=== PATIENT | male | born 1970 | race Caucasian/White ===

== ENCOUNTER 2023-09-15 20:20 | Emergency (ER) | payer OTHER ==
--- NOTE | 2023-09-15 20:27 | ERPHSYRPT ---
- History of Present Illness Time Seen by Provider: 09/15/23 20:26 Source: patient, family Exam Limitations: no limitations Physician History: pt complaint of neck pain Denies Hx trauma. no CP or sobreath but with 6 month Hx neck pain severe though today and got lost / went to wrong room distracted by pain but was concerned. Numbness subjective right arm but normal on exam now. CHest clear. Ht regular without M. Abd soft nontendder no peritoneal signs. Neuro and PERRl EOm fundi benign all normal on exam. No meningismus or reported fever. Discussed risks/benefits with pt and family of labs C]BC, CMP, CXR, Dilaudid, Orphenidrine, benadryl, IV IVF, CT and CTA brain and c spine and neck with pt EKG Trops D DImer and all wish to p[roceed, these are ordered. and results discussed. No rash. No Hx blood thinner. Timing/Duration: today, week(s) Method of Injury: unknown Quality: burning, radiating, sharp, stabbing, throbbing Back Pain Location: C-spine Severity of Pain-Max: severe Severity of Pain-Current: severe Modifying Factors: Improves With: immobilization, movement Associated Symptoms: other ( distracted or confused maybe from pain) Previous symptoms: different symptoms, no recent treatment Allergies/Adverse Reactions: No Known Drug Allergies Allergy (Verified 09/15/23 20:27) Home Medications: No Reportable Medications [No Reported Medications] 09/15/23 [History] - Review of Systems Constitutional: No Fever, No Chills Eyes: No Symptoms Ears, Nose, & Throat: No Symptoms Respiratory: No Cough, No Dyspnea Cardiac: No Chest Pain, No Edema, No Syncope Abdominal/Gastrointestinal: No Abdominal Pain, No Nausea, No Vomiting, No Diarrhea Genitourinary Symptoms: No Dysuria Musculoskeletal: Neck Pain, No Back Pain, No Fall, No Injury Skin: No Rash Neurological: Other (possible confusion), No Dizziness, No Focal Weakness, No Sensory Changes Psychological: No Symptoms Endocrine: No Symptoms Hematologic/Lymphatic: No Symptoms Immunological/Allergic: No Symptoms All Other Systems: Reviewed and Negative - Past Medical History Pertinent Past Medical History: No - Nursing Vital Signs Nursing Vital Signs: Initial Vital Signs Pulse Rate 100 H 09/15/23 20:26 Respiratory Rate 18 09/15/23 20:26 Blood Pressure 163/91 09/15/23 20:26 O2 Sat by Pulse Oximetry 96 09/15/23 20:26 Pain Scale Pain Intensity 6 - Physical Exam General Appearance: moderate distress (pain), alert Eye Exam: PERRL/EOMI, eyes nml inspection Ears, Nose, Throat Exam: normal ENT inspection, TMs normal, pharynx normal, moist mucous membranes Neck Exam: normal inspection, non-tender, supple, full range of motion, No meningismus, No midline tenderness Respiratory Exam: normal breath sounds, lungs clear, No respiratory distress Cardiovascular Exam: regular rate/rhythm, normal heart sounds Gastrointestinal Exam: soft, No tenderness, No mass Rectal Exam: deferred Back Exam: normal inspection, decreased range of motion, muscle spasm (right neck) Extremity Exam: normal inspection, normal range of motion, No calf tenderness, No pedal edema Peripheral Pulses: carotid (R): 2+, carotid (L): 2+, femoral (R): 2+, femoral (L): 2+, dorsalis-pedis (R): 2+, dorsalis-pedis (L): 2+ Neurologic Exam: alert, oriented x 3, cooperative, bacteriologist pharmaceutical II-XII nml as tested, normal mood/affect, nml station & gait, sensation nml, No motor deficits Skin Exam: normal color, warm, dry, No rash SpO2 Interpretation: normal SpO2: 96 O2 Delivery: Room Air - Course Nursing assessment & vital signs reviewed: Yes EKG Interpreted by Me: Sinus Tach, Left Whitharral Deviation, Non-specific ST Changes, Other (inf Q LVH LAD) Ordered Tests: Active Orders 24 hr Category Date Time Status EKG-ER Only STAT Care 09/15/23 20:47 Active IV Insertion STAT Care 09/15/23 20:47 Active CERVICAL SPINE WO CONTRAST [CT] Stat Exams 09/15/23 20:45 Ordered CHEST 1 VIEW (PORTABLE) Stat Exams 09/15/23 20:47 Ordered HEAD WITHOUT CONTRAST [CT] Stat Exams 09/15/23 20:45 Ordered NECK WITH CONTRAST [CT] Stat Exams 09/15/23 20:46 Ordered CBC W DIFF Stat Lab 09/15/23 20:47 Ordered CMP Stat Lab 09/15/23 20:47 Ordered Lactic Acid Stat Lab 09/15/23 20:47 Ordered TROPONIN Q4H Lab 09/15/23 21:00 Ordered TROPONIN Q4H Lab 09/16/23 01:00 Ordered TROPONIN Q4H Lab 09/16/23 05:00 Ordered Medication Summary Generic Name Dose Route Start Last Admin Trade Name Bartolo PRN Reason Stop Dose Admin Sodium Chloride 1,000 mls @ 999 mls/hr 09/15/23 20:47 Sodium Chloride 0.9% 1000 Ml IV 09/15/23 21:47 .Q1H1M STA Discontinued Medications Generic Name Dose Route Start Last Admin Trade Name Bartolo PRN Reason Stop Dose Admin Diphenhydramine HCl 25 mg 09/15/23 20:47 Diphenhydramine Hcl 50 Mg/Ml Vial IV 09/15/23 20:48 STAT ONE Hydromorphone HCl 1 mg 09/15/23 20:47 Hydromorphone 1 Mg/1ml Inj IV 09/15/23 20:48 STAT ONE Orphenadrine Citrate 60 mg 09/15/23 20:48 Orphenadrine Citrate 60 Mg/2 Ml Vial IM 09/15/23 20:49 STAT ONE - Progress Progress: improved, re-examined Progress Note: 09/15/23 21:01 Pt stated that he was feeling some better and wished now to decline the testing and workup ordered. I explained that this may be the result of serious conditions evolving undetected including a CVA, dissection or other vascular problem , neurologic problem which could result in paralysis or other serious including cardiac or cardiovascular or some other condition resulting in or serious disability. He has a normal mental status at this time and the capacity to make this choice. He has no detected neuro or cognitive deficits on exam at this time. I offered Im meds, oral meds , testing without IV or blood work and he still declines all of these. Counseled pt/family regarding: lab results, diagnosis, need for follow-up, rad results Medical Desision Making - Independent Historian Additional History obtained from: Family - Discussion of managment Reviewed:: Test results Agreed on:: Treatment plan, need for follow-up - Diagnostic Testing Diagnostic test were ordered, analyzed, and reviewed by me: Yes - Risk of complications The pt has a mod risk of morbidity or mortality based on: Need for prescription drug management The pt has a high risk of morbidity or mortality based on: Decision regarding hospitilization or escalation of hosp level of care - Departure Departure Disposition: AMA Clinical Impression: neck pain unknown etiology Condition: Stable Critical Care Time: No Instructions: Generalized Neck Pain (DC) Additional Instructions: see your Dr. for further workup since you may have serious conditions. or return meantime if any concerns or you change your mind and wish workup here. also followup with your Dr., for your blood pressure and EKG which has some things also that should be worked up.
[2023-09-15 20:47] VITALS: RESP 20; TEMP 97.9
[2023-09-15] MEDS ORDERED: Hydromorphone 1 mg/ml Injection IV ONE (20:47)
[2023-09-15] MEDS ORDERED: Sodium Chloride 0.9% 1000 ML 1,000 ML IV STA (20:47)
[2023-09-15] MEDS ORDERED: BENADRYL 50 MG/ML IV ONE (20:47)
[2023-09-15 20:48] VITALS: BP 150/95; PULSE 98
[2023-09-15] MEDS ORDERED: Norflex 60 MG/2 ML IM ONE (20:48)
[2023-09-15 20:58] VITALS: O2SAT 96
== END 2023-09-15 21:11 | disposition left against medical advice (07) ==
LOC: ED 20:20
DX: M54.2 Cervicalgia (principal)
CPT/HCPCS: 93005; 99283